=== PATIENT | male | born 1960 | race African-American/Black ===

== ENCOUNTER 2018-06-06 10:34 | Emergency (ER) | payer OTHER ==
[~2018-06-06] VITALS: Ht 167.6 cm; Wt 74.8 kg
[~2018-06-06 10:34] MED LIST: ASPIR 8181 MG PO; CATAPRES0.2 MG PO; GLIPIZIDE 5 MG T5 MG PO; NORVASC10 MG PO; PERCOCET PO
[2018-06-06 15:28] LABS: URINE BILIRUBIN NEGATIVE (Negative); URINE BLOOD TRACE (Negative); URINE CLARITY CLEAR; URINE COLOR YELLOW; URINE GLUCOSE-RANDOM* 2+ (Negative); URINE KETONES NEGATIVE (Negative); URINE LEUKOCYTES-REFLEX NEGATIVE (Negative); URINE NITRITE-REFLEX NEGATIVE (Negative); URINE PROTEIN (DIPSTICK) 2+ (Negative); URINE UROBILINOGEN 0.2 E.U./dl (0.2-1.0)
[2018-06-06 15:32] LABS: CASTS None Seen /LPF (None Seen); SQUAMOUS None Seen /LPF (0-3)
[2018-06-06 15:33] LABS: BACTERIA-REFLEX None Seen /HPF (None Seen); CRYSTALS None Seen /LPF (None Seen); URINE RBC 3-10 Few /HPF (0-2); URINE WBC-REFLEX 0-5 Rare /HPF (0-5)
[2018-06-06 15:49] VITALS: BP 174/84
== END 2018-06-06 15:50 ==
LOC: ER 10:34
PROVIDERS: Student in an Organized Health Care Education/Training Program
DX: T83.098A Other mechanical complication of other urinary catheter, initial encounter (principal); R33.9 Retention of urine, unspecified; I10 Essential (primary) hypertension; E11.9 Type 2 diabetes mellitus without complications; Z87.891 Personal history of nicotine dependence; Y84.8 Other medical procedures as the cause of abnormal reaction of the patient, or of later complication, without mention of misadventure at the time of the procedure; Y92.89 Other specified places as the place of occurrence of the external cause

== ENCOUNTER 2019-09-20 15:37 | Emergency (ER) | payer OTHER ==
[~2019-09-20] VITALS: Ht 175.3 cm; Wt 77.1 kg
[2019-09-20 16:58] LABS: URINE BILIRUBIN NEGATIVE (Negative); URINE BLOOD NEGATIVE (Negative); URINE CLARITY SL CLOUDY; URINE COLOR YELLOW; URINE GLUCOSE-RANDOM* NEGATIVE (Negative); URINE KETONES NEGATIVE (Negative); URINE NITRITE-REFLEX NEGATIVE (Negative); URINE PROTEIN (DIPSTICK) 1+ (Negative); URINE UROBILINOGEN 0.2 E.U./dl (0.2-1.0)
[2019-09-20 17:00] LABS: URINE LEUKOCYTES-REFLEX 3+ (Negative)
[2019-09-20 17:19] LABS: ABSOLUTE NEUTROPHILS 2.5 thou/uL (1.4-8.2); BASOPHILS 1.2 % (0.0-2.0); EOSINOPHILS 6.5 % (0.0-3.0); HEMATOCRIT 22.4 % (42.0-52.0); HEMOGLOBIN 7.2 gm/dL (14.0-18.0); LYMPHOCYTES 10.8 % (24.0-44.0); MCH 23.7 pg (26.0-34.0); MCV 74.3 fL (80.0-100.0); MONOCYTES 8.9 % (1.0-8.0); PLATELET COUNT 111 thou/uL (150-400); POLYS 72.6 % (36.0-66.0); RBC 3.01 mil/uL (4.50-6.00); RDW 16.5 % (10.5-14.5); WBC 3.5 thou/uL (4.0-11.0)
[2019-09-20 17:25] LABS: CASTS None Seen /LPF (None Seen); CRYSTALS None Seen /LPF (None Seen); SQUAMOUS 0-3 Few /LPF (0-3); URINE RBC None Seen /HPF (0-2)
[2019-09-20 17:30] LABS: CALCIUM 8.2 mg/dL (8.5-10.1); CREATININE 4.8 mg/dL (0.7-1.3)
[2019-09-20 21:20] VITALS: BP 174/94
--- NOTE | 2019-09-21 08:16 | EKG ---
[facility] [place] [address] ELECTROCARDIOGRAM REPORT Name: SATISH ALEGRE Room #: [facility]P [facility]..#: [id number] Admission: 09/20/19 Attend Phys: Discharge: 09/20/19 Date of : 56 Report #: [id number] THIS REPORT FOR: cc: Luis Armando Valadez James D. DO Lundgren, Craig H. MD [facility] ~ THIS REPORT FOR: //name// [facility] ED Test Date: 2019-09-20 Test Time: 15:59:12 Pat Name: SATISH ALEGRE Department: Room: Gender: Globe Changer: manavncovidio : 1960 Requested By: Ganesh Rhodes Order Number: [id number] MD: Satya Aparicio Measurements Intervals Craig Rate: 71 P: 76 AL: 176 QRS: 67 QRSD: 87 T: 88 QT: 402 QTc: 437 Interpretive Statements Sinus rhythm Abnormal R-wave progression, early transition Nonspecific T abnormalities Compared to ECG 05/12/2016 19:01:49 Nonspecific change in the ST and T wave segment Sinus tachycardia no longer present Electronically Signed On 09-21-2019 8:15:32 CDT by Satya Aparicio [email or web address] <ELECTRONICALLY SIGNED> By: Satya Aparicio MD, [facility] 09/21/19 0815 1559 1559 Satya Aparicio MD, FAC /EPI
== END 2019-09-20 21:22 ==
LOC: ER 15:37
PROVIDERS: Emergency Medicine
DX: N39.0 Urinary tract infection, site not specified (principal); I12.9 Hypertensive chronic kidney disease with stage 1 through stage 4 chronic kidney disease, or unspecified chronic kidney disease; E11.22 Type 2 diabetes mellitus with diabetic chronic kidney disease; N18.9 Chronic kidney disease, unspecified; J44.9 Chronic obstructive pulmonary disease, unspecified; I25.2 Old myocardial infarction; E78.5 Hyperlipidemia, unspecified; Z86.73 Personal history of transient ischemic attack (TIA), and cerebral infarction without residual deficits; Z87.891 Personal history of nicotine dependence; Z79.82 Long term (current) use of aspirin; Z79.899 Other long term (current) drug therapy

== ENCOUNTER 2019-09-24 01:08 | Inpatient (IN) | payer OTHER ==
[2019-09-24] VITALS (46 sets, daily range): BP systolic 137–205; BP diastolic 59–83
[~2019-09-24] VITALS: Ht 182.9 cm; Wt 79.2 kg
[2019-09-24 01:24] LABS: BE(vivo) -12.3 mmol/L (-2 to +3); HCO3 15.4 mmol/L (22.0-26.0); PCO2 43.1 mmHg (35.0-45.0); PO2 101.3 mmHg (80.0-100.0)
[2019-09-24 02:00] LABS: CALCIUM 8.3 mg/dL (8.5-10.1); CREATININE 4.5 mg/dL (0.7-1.3)
[2019-09-24 02:04] LABS: ABSOLUTE NEUTROPHILS 3.1 thou/uL (1.4-8.2); BASOPHILS 0.9 % (0.0-2.0); HEMATOCRIT 25.4 % (42.0-52.0); HEMOGLOBIN 7.9 gm/dL (14.0-18.0); LYMPHOCYTES 4.9 % (24.0-44.0); MCHC 31.2 g/dL (28.0-37.0); MCV 73.8 fL (80.0-100.0); MONOCYTES 2.3 % (1.0-8.0); PLATELET COUNT 118 thou/uL (150-400); POLYS 89.9 % (36.0-66.0); RBC 3.44 mil/uL (4.50-6.00); RDW 16.5 % (10.5-14.5); WBC 3.5 thou/uL (4.0-11.0)
[2019-09-24 02:10] LABS: ALBUMIN 3.3 g/dL (3.4-5.0); TOTAL BILIRUBIN 0.4 mg/dL (0.2-1.0); TOTAL PROTEIN 7.9 g/dL (6.4-8.2); TROPONIN-I 0.17 ng/mL (<0.06)
[2019-09-24 02:28] LABS: ANISOCYTOSIS 1+; HYPOCHROMASIA 1+; MICROCYTES 1+
[2019-09-24 02:29] LABS: SCHISTOCYTES 1+
[2019-09-24] MEDS ORDERED: ASPIRIN EC81 M1 PO (02:53)
[2019-09-24] MEDS ORDERED: LIPITOR40 MG PO (02:57)
[2019-09-24] MEDS ORDERED: LIPITOR80 MG PO (02:58)
[2019-09-24 02:59] LABS: URINE BILIRUBIN NEGATIVE (Negative); URINE BLOOD NEGATIVE (Negative); URINE CLARITY CLEAR; URINE COLOR YELLOW; URINE GLUCOSE-RANDOM* NEGATIVE (Negative); URINE KETONES NEGATIVE (Negative); URINE LEUKOCYTES-REFLEX TRACE (Negative); URINE NITRITE-REFLEX NEGATIVE (Negative); URINE PROTEIN (DIPSTICK) 2+ (Negative); URINE SPECIFIC GRAVITY 1.025 (1.005-1.035); URINE UROBILINOGEN 0.2 E.U./dl (0.2-1.0)
[2019-09-24 03:14] LABS: AMORPHOUS URATES Few /LPF (None Seen); BACTERIA-REFLEX None Seen /HPF (None Seen); CASTS None Seen /LPF (None Seen); CRYSTALS None Seen /LPF (None Seen); MUCUS 0-3 Light strn/LPF (None Seen); SQUAMOUS None Seen /LPF (0-3); URINE RBC 3-10 Few /HPF (0-2); URINE WBC-REFLEX 0-5 Rare /HPF (0-5)
[2019-09-24] MEDS ORDERED: ROCEPHIN 11 GM/1001 IV (03:31)
[2019-09-24] MEDS ORDERED: CARVEDILOL25 MG PO (03:33)
[2019-09-24] MEDS ORDERED: BACLOFEN5 MG PO (03:33)
[2019-09-24] MEDS ORDERED: NEURONTIN300 MG PO (03:34)
[2019-09-24] MEDS ORDERED: HUMALOG100 UNIT/1 SUBQ ×2 (03:35→03:36)
[2019-09-24] MEDS ORDERED: HYDRALAZINE HC100 MG PO (03:36)
[2019-09-24] MEDS ORDERED: IMODIUM A-D2 MG PO (03:37)
[2019-09-24] MEDS ORDERED: LANTUS SUBQ (03:38)
[2019-09-24] MEDS ORDERED: IPRAT-ALBUT 0.5-3 ML PO (03:39)
[2019-09-24] MEDS ORDERED: LISINOPRIL2.5 MG PO (03:40)
[2019-09-24] MEDS ORDERED: LASIX 20 MG TAB20 MG PO (03:40)
[2019-09-24] MEDS ORDERED: NITROSTAT0.4 M1 SUBLING (03:43)
[2019-09-24] MEDS ORDERED: VITAMIN D3-ALO1 EACH PO (03:44)
--- NOTE | 2019-09-24 04:40 | NUR ---
Pt admitted to ICU room 236 fpr ARDS and Covid-19 rule out. Pt lethargic, but responds to verbal and light tactile stimuli. Speech clear, oriented to person and situation, knows he is in hospital; right arm tightly contracted from previous stroke. No skin breakdown noted during assessment. Pt on bipap 16/6, FiO2 60%; O2 sat 98%. Monitor sinus rhythm. Lucero draining clear, yellow urine in adequate amounts. Vancomyin infusing.
--- NOTE | 2019-09-24 10:12 | EKG ---
[facility] [place] [address] ELECTROCARDIOGRAM REPORT Name: SATISH ALEGRE Room #: 236-P ADM IN M.R.#: [id number] Admission: 09/24/19 Attend Phys: Fanta Landis MD Discharge: Date of : 56 Report #: [id number] THIS REPORT FOR: cc: Luis Armando Valadez James D. DO Park, Jin S. MD ~ THIS REPORT FOR: //name// [facility] ED Test Date: 2019-09-24 Test Time: 01:24:11 Pat Name: SATISH ALEGRE Department: Room: [facility] Gender: M Teacher Industrial Arts: cc : 1960 Requested By: Melissa Mendoza Order Number: [id number] MD: Samuel Leo Measurements Intervals Gridley Rate: 103 P: 77 TN: 175 QRS: 61 QRSD: 110 T: -89 QT: 353 QTc: 462 Interpretive Statements Sinus tachycardia Probable left atrial enlargement Borderline repol abnormality, diffuse leads Baseline wander in lead(s) V2 Compared to ECG 09/20/2019 15:59:12 Sinus rhythm no longer present T-wave abnormality no longer present Electronically Signed On 09-24-2019 10:11:16 CDT by Samuel Leo [email or web address] <ELECTRONICALLY SIGNED> By: Samuel Leo MD 09/24/19 1011 3 0124 Samuel Leo MD /EPI
--- NOTE | 2019-09-24 10:21 | NUR ---
RN ASSUMED CARE AT 0700. PATIENT STABLE AND USING THE BIPAP. AT 1012, BROTHER CALLED TO OBTAIN CONSENT FOR CENTRAL LINE PLACEMENT BY HOME SUPPORT WORKER. BROTHER UNAWARE OF PATIENT'S STATUS CHANGE AND ADMISSION INTO THE ICU. SHANNAN CONCEPCION UPDATED ON POC. PATIENT RESTING AND PREPARING FOR CENTRAL FERNANDO PLACEMENT
--- NOTE | 2019-09-24 11:08 | NUR ---
VASCULAR ACCESS CONSULTED FOR CVAD. PT'S LABS,MEDS,HISTORY,ORDER AND CONSENT VERIFIED. RIJ WAS WIDELY PATENT WITH USG. 6FR 25CM JACC POWER TL INSERTED TO 7CM EXTERNAL. GAUZE APPLIED TO SITE BLEEDING,ON HEPARIN. STAT CXR ORDERED
--- NOTE | 2019-09-24 12:00 | NUR ---
cxr CONFIRMED PLACEMENT RIJ, RELEASED FOR IMMEDIATE USE PER PROTOCOL TO SANAZ PIERSON
[2019-09-24 12:19] LABS: BE(vivo) -8.5 mmol/L (-2 to +3); HCO3 16.7 mmol/L (22.0-26.0); PCO2 32.8 mmHg (35.0-45.0); PO2 125.5 mmHg (80.0-100.0); sO2 98.3 % (92.0-98.0)
[2019-09-24 12:21] LABS: pH 7.325 (7.360-7.450)
[2019-09-24 13:13] LABS: CHOLESTEROL 68 mg/dL (<200); HDL CHOLESTEROL 41 mg/dL (>40); LDL CHOLESTEROL 20 mg/dL (<100); TC:HDL 1.7 Ratio (Not establshd); TRIGLYCERIDE 36 mg/dL (<150); VLDL 7 mg/dL (<40)
[2019-09-25] VITALS (30 sets, daily range): BP systolic 156–198; BP diastolic 62–84
[2019-09-25 01:06] LABS: GLYCOHEMOGLOBIN (HGB A1C) 5.5 % (4.8-5.6)
--- NOTE | 2019-09-25 02:52 | NUR ---
AT 2238 PT MONITOR FROZE, MIDRAY NUMBER ON MONITOR CALLED. PT PLACED ON TRANSPORT MONITOR DURING THIS PERIOD. NURSING STAFF ATTEMPTED TO TROUBLESHOOT THE MONITOR, AFTER SEVERAL UNSUCCESSFULL TRIES DR PETERSON WAS CALLED AND ASKED IF PT COULD BE MOVED TO A NON-NEGATIVE PRESSURE ROOM. DR PETERSON OKAYED TO MOVE PT TO NON-NEGATIVE ROOM. PT TRANSFERED TO ROOM 241 AT 2315. WILL EDWARDO TO MONITOR.
[2019-09-25 04:51] LABS: MCHC 32.3 g/dL (28.0-37.0); POLYS 84.7 % (36.0-66.0); RBC 2.52 mil/uL (4.50-6.00)
[2019-09-25 04:53] LABS: ABSOLUTE NEUTROPHILS 5.3 thou/uL (1.4-8.2); BASOPHILS 0.7 % (0.0-2.0); EOSINOPHILS 1.1 % (0.0-3.0); LYMPHOCYTES 5.9 % (24.0-44.0); MCH 23.5 pg (26.0-34.0); MCV 72.8 fL (80.0-100.0); MONOCYTES 7.6 % (1.0-8.0); PLATELET COUNT 97 thou/uL (150-400); RDW 16.3 % (10.5-14.5); WBC 6.3 thou/uL (4.0-11.0)
[2019-09-25 04:56] LABS: HEMATOCRIT 18.4 % (42.0-52.0); HEMOGLOBIN 5.9 gm/dL (14.0-18.0)
[2019-09-25 05:03] LABS: ALBUMIN 2.7 g/dL (3.4-5.0); CALCIUM 7.8 mg/dL (8.5-10.1); CREATININE 4.4 mg/dL (0.7-1.3); MAGNESIUM 1.1 mg/dL (1.8-2.4); PHOSPHORUS 3.6 mg/dL (2.5-4.9); POTASSIUM 4.2 mmol/L (3.5-5.1)
[2019-09-25 05:23] LABS: ANISOCYTOSIS 1+; HYPOCHROMASIA 1+; MICROCYTES 1+; PLATELET ESTIMATE DECREASED
[2019-09-25 06:00] LABS: BE(vivo) -7.7 mmol/L (-2 to +3); HCO3 17.5 mmol/L (22.0-26.0); PCO2 34.2 mmHg (35.0-45.0); PO2 197.1 mmHg (80.0-100.0); pH 7.328 (7.360-7.450); sO2 99.3 % (92.0-98.0)
[2019-09-25 18:46] LABS: HEMATOCRIT 23.1 % (42.0-52.0); HEMOGLOBIN 7.6 gm/dL (14.0-18.0)
--- NOTE | 2019-09-25 18:50 | NUR ---
1 UNIT PRBC'S TRANSFUSED WITHOUT REACTION. SR ON MONITOR. HOME MEDS RESTARTED FOR BP. 3LNC, OFF BIPAP
[2019-09-26] VITALS (50 sets, daily range): BP systolic 121–214; BP diastolic 48–94
[2019-09-26 03:20] LABS: HEMATOCRIT 24.8 % (42.0-52.0); HEMOGLOBIN 7.9 gm/dL (14.0-18.0); RBC 3.3 mil/uL (4.50-6.00); RDW 17.6 % (10.5-14.5); WBC 5.6 thou/uL (4.0-11.0)
[2019-09-26 03:31] LABS: ALBUMIN 2.8 g/dL (3.4-5.0); CALCIUM 7.9 mg/dL (8.5-10.1); CREATININE 4.5 mg/dL (0.7-1.3); POTASSIUM 4.1 mmol/L (3.5-5.1)
--- NOTE | 2019-09-26 04:54 | NUR ---
ASSUMED CARE AT 1900. PT ALERT AND ORIENTED. CALM AND COOPERATIVE. REPORTS MINIMAL RIGHT ANKLE DISCOMFORT , PT OTHERS COMFORTABLE. NO CHEST PAIN OR NAUSEA OR VOMITING . NO BM OVERNIGHT. STILL PENDING STOOL BLOOD OCCULT COLLECTION. GI . RUSSIAN TEACHER, DR TOWNSEND CALLED TO CHECK ON PATIENT STATUS. NOTIFIED PHYSICIAN THAT Pt HAD NO INDICATION OF ACTIVE BLLEDING, NO EMESIS OR BLOODY STOOL OBSERVED. NO NEW ORDERS GIVEN. PER, , HE WAS FINE FOR PT NOT TO BE NPO PT WILL BE SEEN DURING THE DAY FOR FURTHER EVAL. PT RUNNING A FEVER, AND ELEVATED BP THROUGHT THE NIGHT. FEVER OF BETWEEN 102.2 - 103.0. TYLENOL Q6 ORDERED BY GRADING MACHINE OPERATOR. PT ALSO SBP WAS SUSTAINING IN 190s AND 200s AT SOME POINT. HYDRALAZINE PRN X2, METOPROLOL 5MG IV X1 WITHOUT DESIRED OUTCOME. CARDENE DRIP STARTED PER GRADING MACHINE OPERATOR ORDERS. PTs CURRENT BP AT 147/63, CARDENE AT 10MG/HR. NO PAIN REPORTED THIS AM. HGB STABLE AT 7.9 FROM 7.6 YESTERDAY AFTER TRANSFUSION. NO OTHER CONCERNS. WILL CONTINUE TO MONITOR AND FOLLOW POC.
[2019-09-26] MEDS ORDERED: HUMALOG100 UNIT/1 SUBQ (10:04)
[2019-09-26] MEDS ORDERED: NORCO 5-325 TA1 EAC2 PO (10:05)
--- NOTE | 2019-09-26 10:30 | NUR ---
chart review. unable to visit with pt at this time. cm spoke with cg at his ltc home [facility]. ltc cg " i was sometimes able to transfer in and out of wheel chair on and off toilet but sometimes needs assistance. he able to self propel wheel chair. able to feed himself meals. he is a & o x 3-4, able to make his needs know. able to use call light for assistance. cont of bowl and bladder./"ltc cg. will cont following as needed for dc needs. updates to be sent to [facility].
--- NOTE | 2019-09-26 12:41 | NUR ---
ALEX BANGURA JUST CALLED AND GAVE ORDER TO TAKE PT OFF ISOLATION. SHE IS AWARE PT HAS A FEVER, AND THE SOURCE IS FECTION IS PNEUMONIA PER DR. DEMPSEY
--- NOTE | 2019-09-26 12:56 | NUR ---
FAXED CLINICAL UPDATE SPOKE WITH KAYLIN IN ADM SHE RECEIVED UPDATE AND THAT PT POSS DC TOMORROW.
--- NOTE | 2019-09-26 16:31 | NUR ---
PT CARE ASSUMED 0700, PT ALERT AND ORIENTED X4, COMPLAINS OF ANKLE PAIN WHICH IS TOLERABLE WITH TYLENOL. PT HAS HX OF CVA, RIGHT SIDED WEAKNESS. DENIES ANY NAUSEA AND VOMITING. PT IS 3L OF NC, O2 SAT WNL. REPOSITION EVERY 2 HOURS, LEXIS;L LIGHT AND TABLE IN REACH. BED AT LOWEST LEVEL WITH ALARM ON.
[2019-09-27] VITALS (73 sets, daily range): BP systolic 108–187; BP diastolic 44–81
[2019-09-27 05:47] LABS: HEMOGLOBIN 6.9 gm/dL (14.0-18.0)
[2019-09-27 05:49] LABS: HEMATOCRIT 21.1 % (42.0-52.0); MCH 24.4 pg (26.0-34.0); MCHC 32.7 g/dL (28.0-37.0); MCV 74.6 fL (80.0-100.0); RBC 2.82 mil/uL (4.50-6.00); RDW 17.5 % (10.5-14.5); WBC 3.3 thou/uL (4.0-11.0)
--- NOTE | 2019-09-27 07:37 | NUR ---
ASSUMED PATIENT CARE AT 1845. VITAL SIGNS STABLE WITH PATIENT HAVING NO COMPLAINTS OF PAIN OR NAUSEA. BREATHING STABLE ON NASAL CANNULA EVIDENCED BY ASSESSMENT AND CONTINUOUS SATURATION MONITOR. MOSTLY ORIENTED, PATIENT IS ABLE TO PARTICIPATE IN CARE. PROVIDER CONTACTED DUE TO LOW URINARY OUTPUT WITH ORDERS RECEIVED. SPEECH ORDERED TO EVALUATE POTENTIAL ASPIRATION. PATIENT TURNED FREQUENTLY TO PROTECT SKIN. CONTINUE PLAN OF CARE.
[2019-09-27 08:19] LABS: ALBUMIN 2.8 g/dL (3.4-5.0); CALCIUM 8.5 mg/dL (8.5-10.1); POTASSIUM 4.5 mmol/L (3.5-5.1)
[2019-09-27 08:20] LABS: CREATININE 6.2 mg/dL (0.7-1.3)
--- NOTE | 2019-09-27 10:47 | NUR ---
cm notified by [facility] is he doesnt dc back today he will have to have another covid test before he can return to [facility] ltc. ccu us going to complete cc to have ready when dc.
[2019-09-27 12:31] LABS: BE(vivo) -10.3 mmol/L (-2 to +3); HCO3 13.9 mmol/L (22.0-26.0); PO2 63.4 mmHg (80.0-100.0); pH 7.368 (7.360-7.450); sO2 92.2 % (92.0-98.0)
[2019-09-27 12:32] LABS: PCO2 24.7 mmHg (35.0-45.0)
[2019-09-27 17:14] LABS: HEMATOCRIT 23.3 % (42.0-52.0); HEMOGLOBIN 7.8 gm/dL (14.0-18.0)
--- NOTE | 2019-09-27 18:16 | NUR ---
PATIENT LETHARGIC TODAY, ABG WITH CRITICAL PCO2 OF 24 AND LOW P02 OF 68. INCREASED O2 TO 6L AND DR. PETERSON NOTIFIED. I UNIT OF PRBC GIVEN FOR HGB OF 6.9. NO REACTION TO INFUSION AND REPEAT HGB OF 7.8 . BM TODAY SENT FOR OCCULT, CAME BACK POSITIVE. CARDENE DRIP OFF AT 0900 AND BP REMAINED STABLE. POOR URINE OUTPUT, DR. CLINTON NOTIFIED AND ORDERS FOR BLADDER FLUSH AND BLADDER SCAN Q6HR. FIRST SCAN DONE AT 1400, SCAN NOTED 0 URINE IN BLADDER. FLUSHED WITH 30 CC OF WATER AND 28 CC RETURN. AFEBRILE TODAY.
[2019-09-28] VITALS (25 sets, daily range): BP systolic 142–190; BP diastolic 60–117
--- NOTE | 2019-09-28 03:49 | NUR ---
ASSUMED CARE OF PATIENT AT 1900. BP ELEVATED, PRN BP MEDS GIVEN, BP DOWN SLIGHTLY, ELEVATED AGAIN BY MORNING. COMPLAINS OF THIRST, WANTS REGULAR WATER. EDUCATED ON ASPIRATION PRECAUTIONS. NECTAR THICK LIQUIDS GIVEN. URINE OUTPUT MUCH BETTER THROUGH THE NIGHT. DENIES PAIN. PROGRESSING SLOWLY TOWARDS POC GOALS.
[2019-09-28 05:00] LABS: BE(vivo) -10.6 mmol/L (-2 to +3); HCO3 13.5 mmol/L (22.0-26.0); PO2 57.1 mmHg (80.0-100.0); pH 7.353 (7.360-7.450); sO2 89.2 % (92.0-98.0)
[2019-09-28 05:01] LABS: PCO2 24.9 mmHg (35.0-45.0)
[2019-09-28 05:12] LABS: HEMATOCRIT 26.4 % (42.0-52.0); HEMOGLOBIN 8.7 gm/dL (14.0-18.0); MCH 24.7 pg (26.0-34.0); MCHC 32.8 g/dL (28.0-37.0); MCV 75.1 fL (80.0-100.0); RBC 3.51 mil/uL (4.50-6.00); RDW 18.3 % (10.5-14.5); WBC 3.7 thou/uL (4.0-11.0)
[2019-09-28 05:36] LABS: ALBUMIN 2.7 g/dL (3.4-5.0); CALCIUM 8.2 mg/dL (8.5-10.1); CREATININE 6.5 mg/dL (0.7-1.3); PHOSPHORUS 4.9 mg/dL (2.5-4.9); POTASSIUM 4.6 mmol/L (3.5-5.1)
--- NOTE | 2019-09-28 13:52 | NUR ---
AMANDA reviewed chart and spoke with attending physician. Pt is slowly progressing towards goals for discharge. Pt is now on 8L of O2. Pt is on IV abx and IV lasix. Pt may need a peg tube if he fails video swallow. Pt will need a repeat COVID test, within 72 hours of discharge. management planner to fax clinical updates to facility. AMANDA updated [facility] post-acute liaison. AMANDA spoke with pt's brother via phone to provide update and confirm discharge plan is for pt to return to [facility] when medically stable. AMANDA is following to assist as needed with discharge planning.
--- NOTE | 2019-09-28 14:30 | NUR ---
FAXED CLINICAL UPDATE TO [facility] SPOKE WITH KAYLIN IN ADM SHE RECEIVED UPDATE AND OF POSS DC BACK TO FACILITY TOMORROW.
--- NOTE | 2019-09-28 15:38 | NUR ---
UOP MUCH BETTER TODAY, CLEAR YELLOW. TMAX OF 101.0 DIET DOWNGRADED TO HONEY THICK LIQUID AND PUREE BUT WILL ONLY GIVE SIPS OF HONEY THICK LIQUID UNTIL VIDEO SWALLOW COMPLETED TOMORROW AM. FREQUENT WEAK COUGH. BROTHER SHANNAN AT BEDSIDE TODAY FOR VISIT AND HE SPOKE WITH BOTH DR. DEMPSEY AND DR. PETERSON. ELMER PARKER BM TODAY.
[2019-09-29] VITALS (43 sets, daily range): BP systolic 137–163; BP diastolic 57–70
[2019-09-29 05:36] LABS: HEMOGLOBIN 8.3 gm/dL (14.0-18.0); MCH 24.7 pg (26.0-34.0); MCHC 33.1 g/dL (28.0-37.0); MCV 74.4 fL (80.0-100.0); RBC 3.36 mil/uL (4.50-6.00); RDW 18.7 % (10.5-14.5)
[2019-09-29 05:57] LABS: ALBUMIN 2.5 g/dL (3.4-5.0); CALCIUM 7.7 mg/dL (8.5-10.1); CREATININE 6.7 mg/dL (0.7-1.3); PHOSPHORUS 4.7 mg/dL (2.5-4.9); POTASSIUM 4.3 mmol/L (3.5-5.1)
--- NOTE | 2019-09-29 10:49 | NUR ---
ASSESSMENTS AND INTERVENTIONS DOCCUMENTED. PATIENT DROWSY THIS MORNING. PATIENT SCHEDULED FOR A VIDEO SWALLOW, BUT UNABLE TO GO DOWN TO PROCEDURE DUE TO MENTAL STATUS. DR. PETERSON ROUNDING ON PATIENT AT 1040. NO NEW ORDERS.
--- NOTE | 2019-09-29 13:08 | NUR ---
SW reviewed chart and spoke with nursing and attending physician. Pt remains in ICU. Pt unable to complete video swallow study today due to being too lethargic. Palliative care physician consulted today to discuss plan of care and treatment goals with pt's family. SW provided update to [facility] post-acute liaison. Will need repeat COVID-19 test 72 hours prior to discharge. SW is following to assist as needed with discharge planning.
--- NOTE | 2019-09-29 18:28 | NUR ---
PT IS A&OX2 ( PERSON AND PLACE ), PT CAN FOLLOW COMMANDS, BUT SLOWLY, PT IS CONTINUING IV ABX , PT IS CONTINUING CARDENE TITRATED AT 5MG/HR TO KEEEP BP 138-155/62-70 MMHG ORDER TO KEEP BP < 160MMHG, PT IS ON O2 6L/MIN/NC, PT DENIES PAIN AND SOB , PT'S FAMILY CAME TO SEEING PT, RN HAS UPDATED PT'S IMFORMATION.
[2019-09-30] VITALS (24 sets, daily range): BP systolic 135–175; BP diastolic 60–79
[2019-09-30 05:19] LABS: ALBUMIN 2.4 g/dL (3.4-5.0); CALCIUM 7.7 mg/dL (8.5-10.1); CREATININE 6.8 mg/dL (0.7-1.3); PHOSPHORUS 4.3 mg/dL (2.5-4.9); POTASSIUM 4.3 mmol/L (3.5-5.1)
[2019-09-30 06:39] LABS: HEMATOCRIT 23.3 % (42.0-52.0); HEMOGLOBIN 7.8 gm/dL (14.0-18.0); MCH 25.4 pg (26.0-34.0); MCHC 33.7 g/dL (28.0-37.0); MCV 75.5 fL (80.0-100.0); RBC 3.09 mil/uL (4.50-6.00); RDW 18.5 % (10.5-14.5); WBC 4.5 thou/uL (4.0-11.0)
--- NOTE | 2019-09-30 07:09 | NUR ---
Pt is alert and oriented able to make needs known. Pt is on 6L NC tolerating well. No adverse events throughout the night. Patient stable vital signs WNL. Assessment and Intervention document. Patient is progressing towards goals.
--- NOTE | 2019-09-30 09:47 | NUR ---
Nutrition: If unable to advance diet and within plan of care, Consider tube placement with Nepro at 50 mL/hr.
--- NOTE | 2019-09-30 13:30 | NUR ---
PATIENT WEANED OFF CARDENE, HYDRALAZINE GIVEN IVP. URINE OUTPUT 30 TO 50 ML/HR. SPEECH THERAPY HERE TO REEVALUATE. FLUIDS GIVEN SLOWLY WITH THICKENER. REQESTING MILK WITH MEDICATIONS. OCC COUGH NOTED WITH FLUIDS.
--- NOTE | 2019-09-30 15:03 | NUR ---
AMANDA reviewed chart and spoke with nursing and attending physician. ST evaluated pt and started pt on a diet today. Pt may be ready for discharge back to [facility] over the weekend. AMANDA updated [facility] post acute liaison, who confirms they are able to accept pt back over the weekend. Repeat COVID-19 test to be ordered today. Results and discharge orders/summary will need to be faxed to [facility] when available. Facility liaison to assist with coordination of discharge. Chart copy will need to be completed. AMANDA spoke with pt's brother, Todd, via phone to provide update. Todd is aware and agreeable with plan. AMANDA is available to assist as needed. [facility]-- Liaison-
--- NOTE | 2019-09-30 19:00 | NUR ---
PATIENT C/O DYSPNEA, O2 SAT 88 TO 90% INCREASED SLOWLY TO 13L/HFNC. O2 SAT IMPROVES WITH COUGH, LUNG SHAIKH COARSE RHONCHI AND CRACKLES NOTED. VANCOMYCIN TURNED DOWN. DR ARIAS IN AT 1430 TO DISCUSS PATIENT'S PLAN OF CARE WITH HIM. PATIENT STATED THAT HE WANTS A FEEDING TUBE, CPR AND INTUBATION WITH VENTALATION IF NEEDED BUT DOES NOT WISH TO HAVE DIALYSIS. GI HERE AND AWARE OF PATIENT'S WISHES. PATIENT'S BROTHER SHANNAN ALEGRE IN TO VISIT AND PATIENT VOICED HIS WISHES TO HIS BROTHER IN THE PRESENCE OF THIS NURSE. PATIENT GIVEN HYDRALAZINE IV PRN FOR SYSTOLIC BP GREATER THAN 165 MMHG. CARDENE REMAINS OFF. REASSURANCE GIVEN AND SAT IN THE LOWER 90'S.
[2019-10-01] VITALS (40 sets, daily range): BP systolic 129–170; BP diastolic 58–76
[2019-10-01 04:10] LABS: ALBUMIN 2.4 g/dL (3.4-5.0); CALCIUM 7.8 mg/dL (8.5-10.1); CREATININE 6.8 mg/dL (0.7-1.3); PHOSPHORUS 4.6 mg/dL (2.5-4.9); POTASSIUM 4.2 mmol/L (3.5-5.1)
--- NOTE | 2019-10-01 05:37 | NUR ---
When pt is calm, his sats are 96% and above, but when he is awake and anxious, sats drop to the low 90's, he removes the ventimask and will have labored breathing at that time. His lungs are coarse, he has a weak cough that fails to clear his airway. Monitor reads SR 80's to 90's, trace generalized edema, and receives PO antihypertensives. Pt takes thickened liquids, very small quantities are offered with meds and to moisten his mouth. Last BM was 09/29, around midnight and a specimen was sent, as it looked like mucus, but no odor was noted, awaiting results to rule out possible C-Diff. The bed is in the low/locked position, the call light is within reach, the siderails are up x 4 and the bed alarm is set, pt is making minimal progression toward is POC goals.
--- NOTE | 2019-10-01 09:47 | NUR ---
RN assumed care at 0700. PT was yelling out, "I can't breathe!" RN entered room and noted that PT had removed his ventimask. RN educated PT to leave the venti mask on so it would help his respiratory status. PT's oxygen saturation remained in the 90s. RN attempted to feed PT but he refused breakfast asking only for milk and orange juice. PT told RN that he had a bowel movement. RN attempted to clean PT however copious amounts of stool was constantly leaking from rectum. It was brown and liquid. A fecal management system was inserted with consent from the PT. It appears patent and draining. High fall risk precautions are in place. Call light within reach. RN will continue to monitor.
--- NOTE | 2019-10-01 17:06 | NUR ---
RN spoke with microbiology lab in regards to pending c-diff sample. Lab informed RN that the sample was not ran and is being held due to criteria set up by Christina Nguyễn RN. Lab stated since the PT was admitted over 48 hours ago the sample must be approved by Gracie Nguyễn. RN verbalized understanding and asked since the provider wants the sample to be ran if they were able to do that today. Lab stated that they would speak with their shirt ironer supervisor and nursing should check on sample tomorrow. RN verbalized understanding and informed Dr. Maddox. Will continue to monitor.
[2019-10-02] VITALS (22 sets, daily range): BP systolic 127–175; BP diastolic 53–76
--- NOTE | 2019-10-02 03:50 | NUR ---
PATIENT ALERT AND ORIENTED X4, FORGETFUL AT TIMES. SINUS TACHYCARIDA ON NURSE WOUND CARE. ON OPTIFLOW 65% AND 50 LITERS, PATIENT RESTING COMFORTABLLY, O2 SAT REMAINED ABOVE 90%. PATIENT TOLERATING PO MEDICATION WITH HONEY THICK LIQUID, REFUSING INSULIN PER ORDERS. GEORGES PATIENT, URINE OUTPUT CLOSELY MONITORED. NO SIGN OF ACUTE DISTRESS NOTED AT THIS TIME. WILL CONTINUE TO MONITOR.
[2019-10-02 04:49] LABS: ALBUMIN 2.2 g/dL (3.4-5.0); CREATININE 6.5 mg/dL (0.7-1.3); PHOSPHORUS 6.1 mg/dL (2.5-4.9); POTASSIUM 4.4 mmol/L (3.5-5.1)
--- NOTE | 2019-10-02 18:08 | NUR ---
PT FREQUENTLY HOLLARING OUT FOR WATER. PT COUGHS EVEN WITH SWABS. PT TOLD DR. DAVIDSON TODAY THAT HE WOULD THINK ABOUT A DOBB TAE. HE TOLD DR. MASCORRO THAT HE WOULD THINK ABOUT COMFORT CARE. EMOTIONAL SUPPORT GIVEN.
--- NOTE | 2019-10-02 18:23 | NUR ---
HYDRALZINE GIVEN TIME ONE FOR HTN. PT REFUSES TO TURN AT TIMES AND REFUSING INSULIN. ORIENTED X 4. TYLENOL X 1 TODAY FOR LE PAIN.
[2019-10-03] VITALS (23 sets, daily range): BP systolic 143–175; BP diastolic 63–81
--- NOTE | 2019-10-03 06:00 | NUR ---
REMAINS HYPERTENSIVE SBP 160 TO 170 HYDRALIZINE 10 MG GIVEN 1 X PT HASD MOANED OFF AND ON TONIGHT. WANTING WATER AND FOR SOMEONE TO HOLD HIS HAND. 600 CC UO THIS SHIFT. BATHED SINUS RHYTHM. WILL CONT TO MONITOR
[2019-10-03 06:11] LABS: ALBUMIN 2.2 g/dL (3.4-5.0); CALCIUM 8.1 mg/dL (8.5-10.1); CREATININE 6.4 mg/dL (0.7-1.3); PHOSPHORUS 4.4 mg/dL (2.5-4.9); POTASSIUM 4.3 mmol/L (3.5-5.1)
[2019-10-03 08:12] LABS: BE(vivo) -12.3 mmol/L (-2 to +3); HCO3 12.2 mmol/L (22.0-26.0); PO2 58.1 mmHg (80.0-100.0); pH 7.331 (7.360-7.450); sO2 89.1 % (92.0-98.0)
[2019-10-03 08:15] LABS: PCO2 23.6 mmHg (35.0-45.0)
--- NOTE | 2019-10-03 12:48 | NUR ---
discussed during los, no anticipated dc back to [facility] today. cm provided verbal update to liaison with [facility]. will cont following as needed for dc needs. remains on iv drip medication and eval renal function.
--- NOTE | 2019-10-03 17:53 | NUR ---
ASSESSMENTS AND INTERVENTIONS DOCCUMENTED. NO MAJOR CHANGES THROUGHOUT THIS SHIFT. PATIENT REMAINED ON OPTIFLOW THROUGH OUT THE SHIFT. BROTHER CALLING, UPDATED GIVEN. PATIENT EDUCATED SEVERAL TIMES ABOUT WHY HE COULD NOT HAVE WATER, BUT CONTINUES TO REQUEST IT. PATIENT GIVEN SWABS INSTEAD. PATIENT NOT PROGRESSING TOWARDS GOALS AT THIS TIME. PATIENT REMIANS ON HIGH AMT OF O2 AND REMAINS NPO R/T DYSPHAGIA.
[2019-10-04] VITALS (86 sets, daily range): BP systolic 122–196; BP diastolic 54–85
[2019-10-04 05:33] LABS: WBC 6.1 thou/uL (4.0-11.0)
[2019-10-04 05:37] LABS: HEMATOCRIT 23.5 % (42.0-52.0); HEMOGLOBIN 7.9 gm/dL (14.0-18.0); MCH 24.6 pg (26.0-34.0); MCHC 33.5 g/dL (28.0-37.0); MCV 73.4 fL (80.0-100.0); PLATELET COUNT 177 thou/uL (150-400); RDW 18.9 % (10.5-14.5)
[2019-10-04 05:46] LABS: ALBUMIN 2.2 g/dL (3.4-5.0); CREATININE 6.2 mg/dL (0.7-1.3); POTASSIUM 3.9 mmol/L (3.5-5.1)
[2019-10-04 07:18] LABS: ABSOLUTE NEUTROPHILS 5.4 thou/uL (1.4-8.2)
[2019-10-04 07:19] LABS: ANISOCYTOSIS 1+; HYPOCHROMASIA 1+; MICROCYTES 1+; PLATELET ESTIMATE NORMAL
[2019-10-04 07:21] LABS: BURR CELLS FEW; POIKILOCYTOSIS 1+; TARGET CELLS OCCASIONAL
[2019-10-04 07:22] LABS: LARGE PLATELETS OCCASIONAL
[2019-10-04 07:23] LABS: OVALOCYTES OCCASIONAL
[2019-10-04 10:42] LABS: BE(vivo) -8.2 mmol/L (-2 to +3); HCO3 16.3 mmol/L (22.0-26.0); PCO2 29.5 mmHg (35.0-45.0); PO2 64.9 mmHg (80.0-100.0); sO2 92.4 % (92.0-98.0)
--- NOTE | 2019-10-04 11:18 | NUR ---
discussed during los, gi cont on case, possible needs peg tube vs dobbhoff. unable to go back to [facility] with dobbhoff . possible will need to look at ltac. pt not wanting dialysis, consult dr multani per MD. will cont following as needed for dc needs.
--- NOTE | 2019-10-04 22:29 | NUR ---
RECEIVED REPORT, COMPLETED ASSESSMENT. PT A/0X1, GROANS OUT LOUD ASKING FOR WATER. PT IS NPO AND HAD TAE PLACED. AT 2200 TRANSFERRED PT TO ICU BED 244. ERIC Sharpe RECEIVED REPORT.
[2019-10-05] VITALS (43 sets, daily range): BP systolic 114–167; BP diastolic 49–80
--- NOTE | 2019-10-05 02:24 | NUR ---
ASSUMED CARE OF PATIENT AT 2200. RESTING IN BED. FREQUENTLY ASKING FOR SODA AND WATER. CARDINE GTT TO KEEP SYSTOLIC LESS THAN 160. NO OTHER S/S OF DISTRESS. WORKING TOWARDS POC GOALS.
[2019-10-05 05:47] LABS: HEMOGLOBIN 7.1 gm/dL (14.0-18.0); MCH 24.1 pg (26.0-34.0); MCHC 32.1 g/dL (28.0-37.0); MCV 75.1 fL (80.0-100.0); RBC 2.93 mil/uL (4.50-6.00); RDW 18.8 % (10.5-14.5)
[2019-10-05 05:59] LABS: MAGNESIUM 1.7 mg/dL (1.8-2.4)
[2019-10-05 06:01] LABS: ALBUMIN 2.1 g/dL (3.4-5.0); CALCIUM 7.8 mg/dL (8.5-10.1); CREATININE 6.5 mg/dL (0.7-1.3); POTASSIUM 3.8 mmol/L (3.5-5.1); TOTAL BILIRUBIN 0.5 mg/dL (0.2-1.0); TOTAL PROTEIN 7.2 g/dL (6.4-8.2)
--- NOTE | 2019-10-05 10:28 | NUR ---
Call placed to Dr Finch's answering service per request of Dr Mederos to arrange family meeting with pt's brother. Spoke with "Keven" who indicated she would page Dr Finch with the message.
--- NOTE | 2019-10-05 14:37 | NUR ---
Case discussed with the care team. Palliative Care Consult in progress. Steam [employer] Records Clerk spoke with the [facility] liason to check for any advanced directives or DPOA documents the pt may have completed there. They do not have any on file. They note that the pt had requested his s.o. Lisa Guidry be the primary emergency contact and his brother Todd the second. Both were invited to care plan meetings and involved with his care. Will provide both numbers to Dr. Whitehead. Will follow.
--- NOTE | 2019-10-05 16:10 | NUR ---
Cardene weaned off.
--- NOTE | 2019-10-05 19:00 | NUR ---
Pt has dozed for only brief periods. Stated he was "bored" at times and wanting someone to hold his hands. No contact with family today. No return call from Dr Whitehead-Dr Mederos informed. Continues to have high oxygen requirements (60L and 51% per Optiflow). Report given to DANGELO Daniel assuming care of patient.
[2019-10-06] VITALS (23 sets, daily range): BP systolic 107–148; BP diastolic 40–72
[2019-10-06 05:40] LABS: CALCIUM 7.9 mg/dL (8.5-10.1); CREATININE 7.4 mg/dL (0.7-1.3); PHOSPHORUS 6.1 mg/dL (2.5-4.9); POTASSIUM 4.6 mmol/L (3.5-5.1)
--- NOTE | 2019-10-06 06:14 | NUR ---
Received report and assumed patient care. Patient is AAOx3 and moaned throughout this shift. Patient stated he doesn't know why he is moaning. Patient medicated for right ankle pain once. Patient reminded several times to not remove his oxygen mask. Vital signs remained stable and no acute events occurred during this shift. Patient is progressing towards goal.
--- NOTE | 2019-10-06 12:00 | NUR ---
Nurse informed physician of elkin hugger use secondary to not able to obtain a temperature. After use of blanket warmer, patient temperature was as documented.
--- NOTE | 2019-10-06 14:54 | NUR ---
Patient transported to radiology via radiology chair, with RN's. Patient refused swallow evaluation. Nurse updated patients designated spokes person in regards to the swallow evaluation. He expressed that someone already called and talked to him about it. Nurse updated him and he denied further questions. He then left the unit a short time afterwards.
--- NOTE | 2019-10-06 16:09 | NUR ---
FAXED CLINICAL UPDATE TO [facility] SPOKE WITH KAYLIN SHE RECEIVED UPDATE AND WILL FOLLOW. FAXED REFERRAL TO HOSPICE RECEIVED CONFIRMATION AND TRACEE (AMANDA) WILL F/U WITH HOSPICE.
--- NOTE | 2019-10-06 16:59 | NUR ---
Family discussing plans for comfort care. Pt progressing towards his goal of receiving comfort measures and remaining calm. Pts overall condition is not improving but family and patient have reached mutual understanding of care.
--- NOTE | 2019-10-06 17:06 | NUR ---
Consult rec'd for [facility] eval. Pt's brother Todd has spoken to the attending and Dr. Whitehead. He has been here to visit with the pt in ICU regarding his wishes. Pt is now a DNR, no dialysis and family is interested in the pt going to [facility] vs returning to [facility]. [facility] is allowing 3-4 visitors and [facility] is on a no visitor policy for Covid 19. Message left on Todd's cell number to contact cm. Out of the hospital DNR from left on the chart for signatures. DC office workforce planner faxed referral to intake at [facility] for them to review tomorrow morning. They do not have any bed avialable today;therefore they will eval tomorrow.
[2019-10-07] VITALS (22 sets, daily range): BP systolic 70–137; BP diastolic 31–61
[2019-10-07 05:22] LABS: CALCIUM 7.6 mg/dL (8.5-10.1); CREATININE 7.9 mg/dL (0.7-1.3); MAGNESIUM 1.8 mg/dL (1.8-2.4); PHOSPHORUS 6.8 mg/dL (2.5-4.9); POTASSIUM 4.7 mmol/L (3.5-5.1)
--- NOTE | 2019-10-07 06:37 | NUR ---
Patient remains AAOx3 and on optiflow. Patient complained of pain and medicated twice. He is also still very edematous and urine output is decreasing. Patient is not progressing towards goal. Plan is to discharge him to hospice care.
--- NOTE | 2019-10-07 12:10 | NUR ---
FAXED REFERRAL FOR TRANSFER TO [facility] RECEIVED CONFIRMATION TRACEE (AMANDA) HAS SPOKEN WITH TRANSFER CENTER,. FAXED REFERRAL TO [facility] TRAN[facility] RECEIVED CONFIRMATION AND TRACEE HAS SPOKEN WITH TRANSFER COORD. FOR RESEARCH. DP TO FOLLOW.
--- NOTE | 2019-10-07 13:33 | NUR ---
PATIENT ALERT MOST OF THE DAY, YELLS OUT OCCASIONALLY, "LET'S GO" WHEN ASKED IF IN PAIN OR COLD STATES "NO" VITALS STABLE. BROTHER CAME IN TO VISIT THIS AFTERNOON AND VISITED WITH IRONER OR PRESSER TRACEE. PER BROTHER, PATIENT TO DC TO HOSPICE HOUSE. AWAITING HOSPICE HOUSE REP TO COME IN AND EVAL PATIENT THIS AFTERNOON. DC ORDERS IN COMPUTER PER DR. DEMPSEY.
--- NOTE | 2019-10-07 14:27 | NUR ---
Window Caser spoke with pt's brother Todd and the care team this morning. Todd indicates he will bring in his dpoa for hc document and be available to sign pt's outside the hospital DNR form. He would like to pursue a bed at [facility] vs pt going back to the senior care. [facility] is now allowing 3-4 visits. Todd was here this afternoon. Copy of the dpoa document placed on the chart and faxed to [facility] along with his referral. Outside the hospital DNR from signed by victoria/jeanmarie and the attending and the purple original form is on the chart. Emergency Room Clerk Flores here this afternoon to eval pt. Pt on high percentage of optiflow o2 and desats easily when he pulls it off. Pt would not be able to make an ambulance ride to the [facility] at this time as they cannot provide for his o2 needs. Flores to update the pt's brother Todd. Pt to be placed on their waiting list. Recommendations for morphine gtt and titrating his o2 needs called to the attending per nursing. Flores will call and check in on him this evening and tomorrow morning. She can be reached at [phone] should his o2 needs stabalize for transfer. Support provided. DNR form, dpoa document and kcfd form on chart should they be needed.
--- NOTE | 2019-10-07 15:07 | NUR ---
PER PLANNING FEEDER, HOSPICE SENIOR SPEECH PATHOLOGIST STATE PATIENT NEEDING TOO MUCH O2 FOR THEIR CARE. DR. DEMPSEY PAGED AND NOTIFIED OF THIS AND WILL TALK TO PATIENT'S BROTHER AND IF AGREEABLE WILL INITIATE PALLIATIVE CARE AND ORDERS HERE IN THE HOSPITAL.
--- NOTE | 2019-10-07 15:17 | HC ---
[facility] [place] [address] CONSULTATION Name: SATISH ALEGRE Room #: 244- ADM IN M.R.#: [id number] Admission: 09/24/19 Attend Phys: Rod Mederos MD Discharge: Date of : 56 Report #: [id number] THIS REPORT FOR: cc: Luis Armando Valadez,Reba Powers MD ~ CC: Fanta Valadez REASON FOR CONSULTATION: Elevated creatinine. HISTORY OF PRESENT ILLNESS: Obtained from the medical chart. The patient is currently maintained on CPAP. He has mental status changes. He is a 58-year-old who presented from long-term facility because of hypoxia with an O2 sat down to the 70s. The patient was admitted to the ICU after he was found to have an infiltrate on the right side of his lung on top of his left side, ground glass opacities. 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 In the Emergency Room, the patient was found to have severe metabolic acidosis. He was placed on BiPAP. He had a creatinine value in the mid 3s. He is being ruled out for COVID-19. Unfortunately, the patient does not have any mental capacity to provide me with the history. PAST MEDICAL HISTORY: 1. Obtained from the medical chart. CKD. Creatinine back in April of this year was 2.0. 2. Diabetes mellitus. 3. Cerebrovascular accident with right-sided residual weakness. 4. Hypertension. 5. Subdural hemorrhage. 6. Dysphasia. 7. Coronary artery disease. 8. Neurogenic bladder. PAST SURGICAL HISTORY: Unable to obtain. SOCIAL HISTORY: He resides in a nursing facility. Other parts not be available. FAMILY HISTORY: Unable to obtain given the patient's clinical status. ALLERGIES: None. [facility] MEDICATIONS: Included the followin. Atorvastatin. 2. Nitroglycerin. 3. Carvedilol. [facility] [address] [place] [address] CONSULTATION Name: SATISH ALEGRE Room #: [facility].#: [id number] Admission: 09/24/19 Attend Phys: Rod Mederos MD Discharge: Date of : 56 Report #: [id number] 4. Amlodipine. 5. Lisinopril. 6. Furosemide. 7. Insulin. 8. Baclofen. 9. Hydralazine. REVIEW OF SYSTEMS: Unobtainable given the patient's current mental status. PHYSICAL EXAMINATION: GENERAL: He is on the BiPAP. VITAL SIGNS: Blood pressure is 146/69, temperature 36.5, pulse rate is 93. HEAD AND NECK: No jugular venous distention. CHEST: He has decreased air entry bilaterally with rhonchi bilaterally. CARDIOVASCULAR: No rub detected. ABDOMEN: Soft. EXTREMITIES: Lower extremities, he has no edema. LABORATORY VALUES: Reviewed. White blood cell count is 3.5, hemoglobin is 7.9, platelet is 119. Lymphocyte is 409%. Blood gas showed a pH of 7.170. Sodium is 137, potassium is 5, BUN is 77, creatinine is 4.5. Troponin is mildly elevated to 0.17. UA, some red blood cells are present. COVID-19 is still pending. Chest x-ray reviewed. He has consolidative changes in the right hilum. This is extending into the right lower lung. CT chest is still pending. ASSESSMENT AND PLAN: 1. Acute respiratory failure. 2. Acute kidney injury. 3. Chronic kidney disease. 4. Pneumonitis. 5. Chronic obstructive pulmonary disease. 6. Diabetes mellitus. 7. History of cerebrovascular accident, subdural hemorrhage, right-sided residual weakness. This is a rather severe presentation of acute kidney injury, multiorgan failure with metabolic acidosis, respiratory failure. High possibility for COVID-19 given the lymphopenia and the lung infiltrates and the multiorgan failure. 8. At this point, appropriate antibiotic therapy was initiated after obtaining appropriate cultures. 9. He received 1 dose of Lasix in the Emergency Room. 10. [place] [address] CONSULTATION Name: SATISH ALEGRE Room #: 244-P [facility] IN M.R.#: [id number] Admission: 09/24/19 Attend Phys: Rod Mederos MD Discharge: Date of : 56 Report #: [id number] 11. Continue to watch electrolytes. 12. Continue to watch urine output. 13. Pulmonary support. 14. We will continue to follow. <ELECTRONICALLY SIGNED> By: Reba Castaneda MD 10/07/19 1517 [id number] Reba Castaneda MD /nt
--- NOTE | 2019-10-07 16:20 | NUR ---
PALLIATIVE ORDERS INITIATED PER DR. DEMPSEY'S ORDERS.
[2019-10-08] VITALS (10 sets, daily range): BP systolic 70–114; BP diastolic 32–50
--- NOTE | 2019-10-08 05:15 | NUR ---
ASSUMED CARE AT 1900, ASSESSMENT COMPLETED. INCREASED O2 TO 4L FOR COMFORT; CONGESTED LUNG SOUNDS AND NONPRODUCTIVE COUGH. O2 SATS HAVE VARIED THROUGH THE NIGHT, FROM HIGH 70'S TO 90%. REMOVED NG TUBE AT 1999, SATS STAYED IN MID-HIGH 80'S AFTERWARD. BLOOD PRESSURE HAS BEEN 70'S/30'S ALL NIGHT. HR CONSISTENTLY AROUND 60; HYPOTHERMIC OVERNIGHT, WITH TEMP AROUND 94 DEGREES. EXTREMITIES WARM TO TOUCH WITH VERY WEAK PULSES, NO MOTTLING NOTED. NO URINE OR STOOL OUTPUT OVERNIGHT. GAVE IV MORPHINE ONCE FOR AIR HUNGER/COMFORT. BATH AND LINEN CHANGE THIS AM. NO OTHER CONCERNS, WILL CONTINUE TO MONITOR.
--- NOTE | 2019-10-08 16:30 | NUR ---
ASSESSMENT CHARTED. PT ON COMFORT CARES. WAITING FOR A BED IN HOSPICE CARE. BROTHER UPDATED ON PT'S PROGRESS. COMFORT MEASURES PROVIDED. SEEN BY DR. DEMPSEY. ORDERS NOTED. WILL CONTINUE TO MONITOR.
--- NOTE | 2019-10-08 18:35 | NUR ---
ORDERS GIVEN TO TRANSFER PT TO ROOM 453. REPORT CALLED INB TO DORIE PIERSON. MESSAGE LEFT FOR SHANNAN THE BROTHER TO CALL BACK FOR UPDATES.
--- NOTE | 2019-10-09 01:11 | NUR ---
PT WAS TRANSFERRED FROM ICU AROUND 193. ALERT, AWAKE, DOES NOT RESPOND TO ANY VERBAL COMMANDS. PT ON PALLIATIVE CARE. ARORND 2350, COMPUTER SCIENCES PROFESSOR REPORTED IS UNRESONSIVE WITHOUT PULSES OR RESPIRATIONS. 60 SEC AUSCULTATION PERFORMED WITH 2ND RN AT BEDSIDE. TIME OF 2351. REPORTED TO GR[employer]ER [employer] PLATER, RAMSEY ERNANDEZ STERILE PROCESS COORDINATOR FOR ROBERT CHAIREZ. ATTEMPTED TO CALL DPOA SHANNAN, UNABLE TO REACH THE DPOA. LEFT VM TO HOUSE PHONE AND CELL PHONE. WILL CONT TO TRY TO REACH OUT TO DPOA. ROBERT HARTMAN INDICATED PT IS A POTENTIAL DONOR, AWAITING MTN'S REPONSE AT THIS TIME WELL DPOA'S CALL BACK.
== END 2019-10-08 23:52 | DRG 871 ==
LOC: ER 01:08 → EROBS 03:09 → ICU 03:09 → 4W 10-08 18:22
PROVIDERS: Hospitalist; Internal Medicine Infectious Disease; Internal Medicine Pulmonary Disease; Nurse Practitioner Family; Pediatrics; Student in an Organized Health Care Education/Training Program; ADMIT Hospitalist; ATTEND Hospitalist
PROC: 05HY33Z Insertion of Infusion Device into Upper Vein, Percutaneous Approach (ICD-10-PCS; principal; 2019-09-24)
PROC: 5A09357 Assistance with Respiratory Ventilation, Less than 24 Consecutive Hours, Continuous Positive Airway Pressure (ICD-10-PCS; principal; 2019-09-24)
PROC: 0HQBXZZ Repair Right Upper Arm Skin, External Approach (ICD-10-PCS; 2019-09-24)
PROC: 30233N1 Transfusion of Nonautologous Red Blood Cells into Peripheral Vein, Percutaneous Approach (ICD-10-PCS; 2019-09-25)
DX: A41.9 Sepsis, unspecified organism (principal); J96.01 Acute respiratory failure with hypoxia; I62.00 Nontraumatic subdural hemorrhage, unspecified; J69.0 Pneumonitis due to inhalation of food and vomit; N17.9 Acute kidney failure, unspecified; N18.4 Chronic kidney disease, stage 4 (severe); D62 Acute posthemorrhagic anemia; D61.818 Other pancytopenia; G93.40 Encephalopathy, unspecified; K92.2 Gastrointestinal hemorrhage, unspecified; E87.0 Hyperosmolality and hypernatremia; I69.351 Hemiplegia and hemiparesis following cerebral infarction affecting right dominant side; R65.20 Severe sepsis without septic shock; J43.9 Emphysema, unspecified; I25.10 Atherosclerotic heart disease of native coronary artery without angina pectoris; E11.40 Type 2 diabetes mellitus with diabetic neuropathy, unspecified; E66.9 Obesity, unspecified; E11.42 Type 2 diabetes mellitus with diabetic polyneuropathy; E11.22 Type 2 diabetes mellitus with diabetic chronic kidney disease; I12.9 Hypertensive chronic kidney disease with stage 1 through stage 4 chronic kidney disease, or unspecified chronic kidney disease; Z20.828 Contact with and (suspected) exposure to other viral communicable diseases; R41.0 Disorientation, unspecified; Z66 Do not resuscitate; Z51.5 Encounter for palliative care; I25.2 Old myocardial infarction; Z68.23 Body mass index [BMI] 23.0-23.9, adult; Z87.891 Personal history of nicotine dependence; Z79.899 Other long term (current) drug therapy
CPT/HCPCS: 10078